=== PATIENT | female | born 1930 | race Caucasian/White ===

== ENCOUNTER 2018-10-26 17:15 | Emergency (ER) | payer OTHER ==
[~2018-10-26] VITALS: Ht 160 cm; Wt 72.6 kg
[2018-10-26 17:27] VITALS: BP_SYST 143
--- NOTE | 2018-10-26 17:30 | NUR ---
Patient to ER bed 08 to gown for evaluation. Side rails up.
--- NOTE | 2018-10-26 17:32 | NUR ---
Pt brought by daughter,A&Ox4, pt presents to ER with R knee, R ankle pain and swelling , pt denies trauma, skin pink and warm , cap refill <3, VSS.
[2018-10-26] MEDS ORDERED: ACETAMINOPHEN/CODEINE 300 MG-30 MG TABLET PO ONE (17:45)
--- NOTE | 2018-10-26 17:45 | NUR ---
Alysa Stevens MD at bedside examining patient
[2018-10-26 18:33] VITALS: BP_SYST 133
--- NOTE | 2018-10-26 18:36 | NUR ---
Patient given written and verbal discharge instructions and verbalizes understanding. ER MD discussed with patient the results and treatment provided. Patient in stable condition. ID arm band removed. Rx of Tylenol #3 given. Patient educated on pain management, risk of constipation, precautions for ETOH & driving, risk of addiction and to follow up with PMD. Pain Scale 0/10. Opportunity for questions provided and answered. Medication side effect fact sheet provided.
== END 2018-10-26 18:33 | disposition home or self-care (01) ==
LOC: SED 17:15
DX: M19.072 Primary osteoarthritis, left ankle and foot (principal); M17.12 Unilateral primary osteoarthritis, left knee
CPT/HCPCS: 73564; 99283